=== PATIENT | male | born 1955 | race Caucasian/White ===

== ENCOUNTER → 2017-02-13 | Outpatient (REF) | payer OTHER ==
[2017-02-13 18:11] LABS: ALBUMIN 3.9 GM/DL (3.2-5.2); ALBUMIN/GLOBULIN RATIO 1.15 (1.00-1.93); BILIRUBIN,TOTAL 0.5 MG/DL (0.2-1.0); CALCIUM LEVEL 9.3 MG/DL (8.8-10.2); CREATININE FOR GFR 1.6 MG/DL (0.70-1.30); GLOMERULAR FILTRATION RATE 47.2 (>49); POTASSIUM SERUM 4.6 MEQ/L (3.5-5.1); TOTAL PROTEIN 7.3 GM/DL (6.4-8.2)
== END ==
LOC: M SFHCCLAY 13:36
PROVIDERS: ATTEND Family Medicine
DX: E11.22 Type 2 diabetes mellitus with diabetic chronic kidney disease (principal); E78.00 Pure hypercholesterolemia, unspecified

== ENCOUNTER → 2017-05-13 | Outpatient (REF) | payer OTHER ==
[2017-05-14 13:30] LABS: CALCIUM LEVEL 9.5 MG/DL (8.8-10.2); CREATININE FOR GFR 1.76 MG/DL (0.70-1.30); GLOMERULAR FILTRATION RATE 42.1 (>49); POTASSIUM SERUM 4.7 MEQ/L (3.5-5.1)
== END ==
LOC: M SFHCCLAY 14:21
PROVIDERS: ATTEND Family Medicine
DX: E11.22 Type 2 diabetes mellitus with diabetic chronic kidney disease (principal)

== ENCOUNTER → 2017-08-04 | Outpatient (CLI) | payer OTHER ==
--- NOTE | 2017-08-04 16:03 | REP ---
Duplex carotid sonography: History: Altered mental status. Renal insufficiency. Findings: Antegrade flow is observed in both vertebral arteries. Right carotid: The right common carotid artery shows mild diffuse intimal thickening. There is mild to moderate mixed plaquing in the bulb, proximal ICA and proximal ECA on two-dimensional scanning on the right side. Color flow and spectral Doppler interrogation demonstrate normal waveforms and velocities. Velocity chart right carotid: CCA PSV 99 cm/s ICA PSV 90 cm/s ICA EDV 26 cm/s ECA PSV 92 cm/s Right ICA/CCA ratio normal 0.9. Impression: 16 49% category narrowing in the right ICA by Doppler velocity criteria. Left carotid: The left common carotid artery shows mild diffuse intimal thickening as well. There is mild mixed plaquing in the bulb and proximal ICA on two-dimensional scanning on the left side. Color flow and spectral Doppler interrogation are unremarkable. Velocity chart left carotid: CCA PSV 91 cm/s ICA PSV 86 cm/s ICA EDV 23 cm/s ECA PSV 72 cm/s ICA/CCA ratio normal 1.0. Impression: 16-49% category narrowing in the left ICA by Doppler velocity criteria. Signed by Evangelista Reed MD 08/04/2017 04:11 P
--- NOTE | 2017-08-04 16:43 | REP ---
MRI BRAIN WITHOUT CONTRAST: 08/04/2017 CLINICAL HISTORY: altered mental status, renal insufficiency. Dizziness. TECHNIQUE: Sagittal T1 with axial T2, FLAIR, diffusion weighted images and ADC mapping sequences, gradient-echo and a standard T1 sequence provided. FINDINGS: There are no comparison studies. The lateral ventricles were midline symmetric and without dilatation. There is size is proportionate to age and there is no significant atrophy. Third and fourth ventricles are grossly unremarkable. Basal ganglia are symmetric and normal in appearance. There are some periventricular deep central and subcortical white matter hyperintense T2 and FLAIR foci in both frontal and parietal lobes. On the T2 and FLAIR images in the axial plane. There are appear to be some linear hyperintense signal foci near the ventricles along with some more confluent deep central and subcortical white matter tract. The findings suggest possible Ied's fingers. The cortical stripe is preserved. There is no vascular territory infarct, intracranial hemorrhage, mass or mass effect. The diffusion weighted images and the ADC mapping sequences show no evidence of acute ischemia. Brainstem grossly intact cerebellum shows atrophy without hemorrhage or mass in the posterior fossa. Tortuous ectatic basilar artery is noted. The seventh/eighth cranial nerve complexes and mastoids are grossly intact. Visualized sinuses show no opacification or air-fluid levels. Globes and intraorbital contents symmetric and normal. The corpus callosum, optic chiasm and pituitary were intact. There is no cerebellar tonsillar ectopia. Diffusion weighted images show no evidence of old hemorrhage in the brain. IMPRESSION: 1. Fairly extensive pattern of periventricular deep, central and subcortical white matter hyperintense T2 foci and FLAIR foci as well as some linear periventricular bright signal foci in the sequences that may reflect Eid's fingers, a sign that may be associated with MS. Please correlate clinically. 2. No acute infarct, hemorrhage, mass, mass effect or edema. No restricted water diffusion to suggest acute ischemia. No other significant findings. Signed by Rush Quesada MD 08/04/2017 05:21 P
== END ==
LOC: M RAD 13:47
PROVIDERS: ATTEND Family Medicine
DX: R41.82 Altered mental status, unspecified (principal); N18.9 Chronic kidney disease, unspecified

== ENCOUNTER → 2017-08-12 | Outpatient (REF) | payer OTHER ==
[2017-08-12 14:29] LABS: FOLATE 12.6 NG/ML (>5.4); VITAMIN B12 LEVEL 328 PG/ML (247-911)
[2017-08-12 15:44] LABS: ALBUMIN 3.9 GM/DL (3.2-5.2); ALBUMIN/GLOBULIN RATIO 1.26 (1.00-1.93); ALKALINE PHOSPHATASE 52 U/L (45-117); ALT/SGPT 27 U/L (12-78); ANION GAP 5 MEQ/L (8-16); AST/SGOT 14 U/L (15-37); BILIRUBIN,TOTAL 0.5 MG/DL (0.2-1.0); BLOOD UREA NITROGEN 18 MG/DL (7-18); CALCIUM LEVEL 9.2 MG/DL (8.8-10.2); CARBON DIOXIDE LEVEL 30 MEQ/L (21-32); CHLORIDE LEVEL 107 MEQ/L (98-107); CREATININE FOR GFR 1.24 MG/DL (0.70-1.30); GLOMERULAR FILTRATION RATE > 60.0 (>49); GLUCOSE, FASTING 91 MG/DL (80-110); POTASSIUM SERUM 4.4 MEQ/L (3.5-5.1); SODIUM LEVEL 142 MEQ/L (136-145)
[2017-08-13 13:40] LABS: ALBUMIN 4.41 GM/DL (3.29-5.55); GAMMA GLOBULIN % 17.2 % (11.1-18.8)
[2017-08-14 10:32] LABS: Lyme Disease IgG/IgM Antibodie <0.91 ISR (0.00-0.90); Lyme Disease IgM Ab Quantitati <0.80 index (0.00-0.79)
== END ==
LOC: M LABNEURO 10:36
PROVIDERS: ATTEND Psychiatry & Neurology Neurology
DX: G35 Multiple sclerosis (principal); G45.9 Transient cerebral ischemic attack, unspecified

== ENCOUNTER → 2017-10-28 | Outpatient (REF) | payer OTHER ==
[2017-10-28 16:29] LABS: BASO # 0.1 10^3/uL (0.0-0.2); BASO % 0.8 % (0.0-1.0); EOS # 0.1 10^3/uL (0.0-0.50); EOS % 2.2 % (0.0-3.0); IMMATURE GRANULOCYTE % 1.1 % (0-0); LYMPH # 1.1 10^3/uL (1.5-4.5); LYMPH % 16.7 % (24.0-44.0); MEAN CORPUSCULAR HEMOGLOBIN 31.4 pg (27.0-33.0); MEAN CORPUSCULAR HGB CONC 34.3 g/dl (32.0-36.5); MEAN CORPUSCULAR VOLUME 91.7 fl (80.0-96.0); MONO # 0.7 10^3/uL (0.0-0.8); MONO % 11.2 % (0.0-5.0); NEUTROPHILS # 4.4 10^3/uL (1.8-7.7); PLATELET COUNT, AUTOMATED 289 10^3/uL (150-450); RED CELL DISTRIBUTION WIDTH 11.8 % (11.5-14.5); WHITE BLOOD COUNT 6.5 10^3/uL (4.0-10.0)
[2017-10-28 16:40] LABS: ALBUMIN/GLOBULIN RATIO 1.14 (1.00-1.93); BILIRUBIN,TOTAL 0.4 MG/DL (0.2-1.0); CALCIUM LEVEL 9.1 MG/DL (8.8-10.2); CREATININE FOR GFR 1.58 MG/DL (0.70-1.30); GLOMERULAR FILTRATION RATE 47.7 (>49); TOTAL PROTEIN 7.5 GM/DL (6.4-8.2)
== END ==
LOC: M SFHCCLAY 10:18
PROVIDERS: ATTEND Family Medicine
DX: E11.22 Type 2 diabetes mellitus with diabetic chronic kidney disease (principal)

== ENCOUNTER → 2018-01-27 | Outpatient (REF) | payer OTHER ==
[2018-01-27 18:11] LABS: ESTIMATED AVERAGE GLUCOSE 137 MG/DL (60-110); HEMOGLOBIN A1c 6.4 %
[2018-01-27 19:11] LABS: ANION GAP 4 MEQ/L (8-16); BLOOD UREA NITROGEN 16 MG/DL (7-18); CALCIUM LEVEL 9.2 MG/DL (8.8-10.2); CARBON DIOXIDE LEVEL 32 MEQ/L (21-32); CHLORIDE LEVEL 104 MEQ/L (98-107); CREATININE FOR GFR 1.43 MG/DL (0.70-1.30); GLOMERULAR FILTRATION RATE 53.5 (>49); GLUCOSE, FASTING 120 MG/DL (70-100); POTASSIUM SERUM 4.4 MEQ/L (3.5-5.1); SODIUM LEVEL 140 MEQ/L (136-145)
== END ==
LOC: M SFHCCLAY 11:17
DX: E11.22 Type 2 diabetes mellitus with diabetic chronic kidney disease (principal)

== ENCOUNTER → 2018-08-04 | Outpatient (REF) | payer OTHER ==
[2018-08-04 18:11] LABS: BASO % 0.5 % (0.0-1.0); EOS % 0.7 % (0.0-3.0); HEMATOCRIT 40.4 % (42.0-52.0); HEMOGLOBIN 13.1 g/dl (13.5-17.5); IMMATURE GRANULOCYTE % 0.8 % (0-3.0); LYMPH # 0.9 10^3/uL (1.5-4.5); LYMPH % 15.4 % (24.0-44.0); MEAN CORPUSCULAR HEMOGLOBIN 31.4 pg (27.0-33.0); MEAN CORPUSCULAR HGB CONC 32.4 g/dl (32.0-36.5); MEAN CORPUSCULAR VOLUME 96.9 fl (80.0-96.0); MONO # 0.6 10^3/uL (0.0-0.8); MONO % 9.2 % (0.0-5.0); NEUTROPHILS # 4.5 10^3/uL (1.8-7.7); NEUTROPHILS % 73.4 % (36.0-66.0); PLATELET COUNT, AUTOMATED 272 10^3/uL (150-450); RED BLOOD COUNT 4.17 10^6/uL (4.30-6.10); RED CELL DISTRIBUTION WIDTH 12.3 % (11.5-14.5); WHITE BLOOD COUNT 6.1 10^3/uL (4.0-10.0)
[2018-08-04 18:26] LABS: ALBUMIN 4.2 GM/DL (3.2-5.2); ALKALINE PHOSPHATASE 78 U/L (45-117); ALT/SGPT 28 U/L (12-78); ANION GAP 7 MEQ/L (8-16); AST/SGOT 16 U/L (7-37); BILIRUBIN,TOTAL 0.5 MG/DL (0.2-1.0); BLOOD UREA NITROGEN 20 MG/DL (7-18); CALCIUM LEVEL 9.6 MG/DL (8.8-10.2); CARBON DIOXIDE LEVEL 29 MEQ/L (21-32); CHLORIDE LEVEL 106 MEQ/L (98-107); CHOLESTEROL LEVEL 127 MG/DL (<200); CHOLESTEROL RISK RATIO 2.396 (<5); CREATININE FOR GFR 1.64 MG/DL (0.70-1.30); GLOMERULAR FILTRATION RATE 45.5 (>49); GLUCOSE, FASTING 121 MG/DL (70-100); HDL CHOLESTEROL 53 MG/DL (>40); LDL CHOLESTEROL 59 MG/DL (<100); NON-HDL-C 74 MG/DL; POTASSIUM SERUM 5.3 MEQ/L (3.5-5.1); SODIUM LEVEL 142 MEQ/L (136-145); TOTAL PROTEIN 7.7 GM/DL (6.4-8.2); TRIGLYCERIDES LEVEL 73 MG/DL (<150)
== END ==
LOC: M SFHCCLAY 13:39
DX: E11.22 Type 2 diabetes mellitus with diabetic chronic kidney disease (principal); E78.00 Pure hypercholesterolemia, unspecified; N18.3 Chronic kidney disease, stage 3 (moderate); R63.4 Abnormal weight loss
CPT/HCPCS: 84443

== ENCOUNTER → 2019-04-12 | Outpatient (REF) | payer OTHER ==
[2019-04-12 12:51] LABS: CALCIUM LEVEL 9.2 MG/DL (8.8-10.2); CREATININE FOR GFR 1.51 MG/DL (0.70-1.30); GLOMERULAR FILTRATION RATE 49.9 (>49); POTASSIUM SERUM 4.8 MEQ/L (3.5-5.1)
[2019-04-12 15:32] LABS: HEMOGLOBIN A1c 6.5 %
== END ==
LOC: M SFHCCLAY 09:03
PROVIDERS: ATTEND Family Medicine
DX: E11.9 Type 2 diabetes mellitus without complications (principal)

== ENCOUNTER → 2019-05-05 | Outpatient (CLI) | payer OTHER ==
[~2019-05-05] MED LIST: ASPI81TA85 PO; ATOR40TA75 PO; BENA20TA PO; CLOP75TA2 PO; DIVA250T67 PO; NESI25TA PO; TOUJ1.2I SC
== END ==
LOC: M SMT 14:20
PROVIDERS: ATTEND Nurse Practitioner Women's Health
DX: Z12.5 Encounter for screening for malignant neoplasm of prostate (principal)

== ENCOUNTER → 2019-05-11 | Outpatient (CLI) | payer OTHER ==
--- NOTE | 2019-05-11 16:51 | REP ---
Scrotal ultrasound for testicular pain: The testes are normal size. The right testis measures 3.3 x 1.2 x 2.1 cm. Left testis measures 3.1 1.4 x 2.2 cm. There are no testicular masses or cysts. The right epididymal head measures 18 mm in diameter. There is a septated right epididymal head cyst measuring 1.50 x 0.5 x 1 point zero centimeters. The left epididymal head measures 6.1 mm. There is a 3.7 mm left epididymal head cyst. There are micro calcifications in the testis. No microcalcifications are identified in the left testis. 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 There is a left inguinal hernia containing bowel fat and fluid. The hernia displaces the left testis medially. There is vascular flow in both testes. The Doppler resistive index of the parenchymal arteries of the right testis is 0.56 and left testis 0.50. Impression: There is a left inguinal hernia that displaces the left testis medially. There are bilateral epididymal head cysts. 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 Micro calcifications in the right testis. There are no testicular masses. Electronically Signed by Ho Ruano MD 05/11/2019 04:43 P
== END ==
LOC: M RAD 15:10
PROVIDERS: ATTEND Nurse Practitioner Women's Health
DX: R93.811 Abnormal radiologic findings on diagnostic imaging of right testicle (principal); N50.3 Cyst of epididymis; K40.90 Unilateral inguinal hernia, without obstruction or gangrene, not specified as recurrent; N50.819 Testicular pain, unspecified

== ENCOUNTER → 2019-05-18 | Day surgery (SDC) | payer OTHER ==
[~2019-05-18] VITALS: Ht 154.9 cm; Wt 63.5 kg
[~2019-05-18] MED LIST changes: +LIDOCAINE 2% INJ 100 MG/5 ML SDV (FOR ANES.) As Ordered ONE; +NS 1,000 ML IV ONE; +PROPOFOL 200 MG/20 ML VIAL As Ordered ONE
== END | disposition home or self-care (01) ==
LOC: M OPP 12:06
PROVIDERS: ATTEND Surgery
DX: K62.5 Hemorrhage of anus and rectum (principal); Z53.8 Procedure and treatment not carried out for other reasons

== ENCOUNTER 2019-06-01 10:21 | Day surgery (SDC) | payer OTHER ==
[~2019-06-01] VITALS: Ht 152.4 cm; Wt 63.2 kg
[~2019-06-01 10:21] MED LIST changes: -LIDOCAINE 2% INJ 100 MG/5 ML SDV (FOR ANES.) As Ordered ONE; -PROPOFOL 200 MG/20 ML VIAL As Ordered ONE
[2019-06-01] MEDS ORDERED: PROPOFOL 500 MG/50 ML VIAL As Ordered ONE (10:58)
[2019-06-01] MEDS ORDERED: LIDOCAINE 2% INJ 100 MG/5 ML SDV (FOR ANES.) As Ordered ONE (10:58)
--- NOTE | 2019-06-01 11:15 | ROOR ---
Patient Name: Yoan Garnica Procedure Date: 06/01/2019 10:50 AM Date of : 1955 Age: 64 Room: [facility] Gender: Male Note Status: Finalized Procedure: Colonoscopy Indications: Hematochezia Providers: DO Rod Persaud MD: Jonah Yip MD ([place]) Requesting Provider: Medicines: Propofol per Anesthesia Complications: No immediate complications. Procedure: Pre-Anesthesia Assessment: - Prior to the procedure, a History and Physical was performed, and patient medications and allergies were reviewed. The patient is competent. The risks and benefits of the procedure and the sedation options and risks were discussed with the patient. All questions were answered and informed consent was obtained. Patient identification and proposed procedure were verified by the physician, the nurse, the anesthesiologist and the photonics technician in the endoscopy suite. Mental Status Examination: alert and oriented. Airway Examination: normal oropharyngeal airway and neck mobility. Respiratory Examination: clear to auscultation. CV Examination: normal. Prophylactic Antibiotics: The patient does not require prophylactic antibiotics. Prior Anticoagulants: The patient has taken no previous anticoagulant or antiplatelet agents. ASA Grade Assessment: II - A patient with mild systemic disease. After reviewing the risks and benefits, the patient was deemed in satisfactory condition to undergo the procedure. The anesthesia plan was to use monitored anesthesia care (MAC). Immediately prior to administration of medications, the patient was re-assessed for adequacy to receive sedatives. The heart rate, respiratory rate, oxygen saturations, blood pressure, adequacy of pulmonary ventilation, and response to care were monitored throughout the procedure. The physical status of the patient was re-assessed after the procedure. The Colonoscope was introduced through the anus with the intention of advancing to the cecum. The scope was advanced to the descending colon before the procedure was aborted. Medications were not given. The colonoscopy was performed without difficulty. The patient tolerated the procedure well. Findings: The sigmoid colon was significantly tortuous. Advancing the scope required changing the patient to a supine position. The exam was otherwise without abnormality on direct and retroflexion views. Impression: - Tortuous colon. - The examination was otherwise normal on direct and retroflexion views. - No specimens collected. Recommendation: - Patient has a contact number available for emergencies. The signs and symptoms of potential delayed complications were discussed with the patient. Return to normal activities tomorrow. Written discharge instructions were provided to the patient. - Repeat colonoscopy in 6 months because the examination was incomplete. - Return to my office as previously scheduled. Ho Briones DO 06/01/2019 11:15:30 AM Electronically signed by Ho Briones DO Number of Addenda: 0 Note Initiated On: 06/01/2019 10:50 AM Estimated Blood Loss: Estimated blood loss: none.
[2019-06-01 11:40] VITALS: BP 104/64
== END 2019-06-01 13:20 | disposition home or self-care (01) ==
LOC: M OPP 10:21
PROVIDERS: ATTEND Surgery
DX: Q43.8 Other specified congenital malformations of intestine (principal); K92.1 Melena; Z79.4 Long term (current) use of insulin; Z79.82 Long term (current) use of aspirin; Z79.899 Other long term (current) drug therapy